=== PATIENT | male | born 1955 | race Caucasian/White ===

== ENCOUNTER 2022-11-23 03:54 | Inpatient (IN) | payer OTHER ==
[~2022-11-23] VITALS: Ht 172.7 cm; Wt 92.8 kg
[2022-11-23 04:05] VITALS: BP 159/94
[2022-11-23 04:26] LABS: BASO # 0.1 10*3/uL (0.0-0.1); BASO % 0.7 % (0.0-1.0); EOS # 0.2 10*3/uL (0.0-0.4); EOS % 1.9 % (1.0-4.0); LYMPH # 2.5 10*3/uL (1.3-4.4); LYMPH % 29.7 % (27.0-41.0); MEAN CELL VOLUME 89.3 fl (80.0-94.0); MEAN CORPUSCULAR HGB 28.5 pg (27.0-31.0); MEAN PLATELET VOLUME 8.3 fl (9.6-12.3); MONO # 0.4 10*3/uL (0.1-1.0); MONO % 5.1 % (3.0-9.0); NEUT # 5.3 10*3/uL (2.3-7.9); NEUT % 62.4 % (47.0-73.0); PLATELET COUNT AUTOMATED 294 10*3/uL (130-400); RED BLOOD COUNT 5.15 10*6/uL (4.50-5.90); RED CELL DISTRI WIDTH 15.4 % (0-14.5); WHITE BLOOD COUNT 8.5 10*3/uL (4.8-10.8)
[2022-11-23 04:40] LABS: ACT PARTIAL THROMBO TIME 25.9 SECONDS (20.0-32.1); INTERNATIONAL NORM RATIO 1.1 (2.0-3.5)
[2022-11-23 04:52] LABS: ALKALINE PHOSPHATASE 89 U/L (46-116); BUN 17 mg/dl (9-23); CHLORIDE 110 mmol/L (98-107); LIPASE 37 U/L (12-53); POTASSIUM 4.5 mmol/L (3.4-5.1); SGPT/ALT 36 U/L (10-49)
[2022-11-23 06:35] LABS: BILIRUBIN Negative (Negative); BLOOD Negative (Negative); CLARITY Clear (Clear); COLOR Yellow (Yellow); GLUCOSE Negative (Negative); KETONE Negative (Negative); LEUKO ESTERASE 1+ (Negative); NITRITE Negative (Negative); PH 5.5 (4.5-8.0)
[2022-11-23 06:41] LABS: WBC 21-30 wbc/hpf (0-5)
[2022-11-23 06:42] LABS: BACTERIA TRACE; EPITHELIAL CELLS 0-2; HYALINE CAST 0-2
[2022-11-23 12:00] VITALS: BP 111/65
[2022-11-23 12:45] VITALS: BP 104/68
[2022-11-23 16:20] VITALS: BP 106/64
[2022-11-23 20:00] VITALS: BP 112/64
[2022-11-24] VITALS: BP 102/54; BP 95/47
[2022-11-24 06:14] LABS: BASO # 0.1 10*3/uL (0.0-0.1); BASO % 1.1 % (0.0-1.0); EOS # 0.1 10*3/uL (0.0-0.4); EOS % 1.7 % (1.0-4.0); HEMATOCRIT 41.4 % (42.0-52.0); LYMPH # 2.2 10*3/uL (1.3-4.4); LYMPH % 34.2 % (27.0-41.0); MEAN CORPUSCULAR HGB 28.7 pg (27.0-31.0); MEAN CORPUSCULAR HGB CONC 31.9 g/dl (33.0-37.0); MEAN PLATELET VOLUME 8.5 fl (9.6-12.3); MONO # 0.4 10*3/uL (0.1-1.0); MONO % 6.9 % (3.0-9.0); NEUT # 3.6 10*3/uL (2.3-7.9); NEUT % 55.8 % (47.0-73.0); PLATELET COUNT AUTOMATED 244 10*3/uL (130-400); RED CELL DISTRI WIDTH 15.6 % (0-14.5); WHITE BLOOD COUNT 6.4 10*3/uL (4.8-10.8)
[2022-11-24 06:17] LABS: FREE T4 1.15 ng/dl (0.89-1.76); POTASSIUM 4.1 mmol/L (3.4-5.1); TOTAL PROTEIN 6.3 gm/dL (6.0-8.0)
[2022-11-24 07:25] LABS: VITAMIN D, 25-HYDROXY 16.3 ng/mL (30-100)
[2022-11-24 08:00] VITALS: BP 130/78
[2022-11-24 16:00] VITALS: BP 149/74
[2022-11-24 20:00] VITALS: BP 99/54
[2022-11-24 22:30] VITALS: BP 110/58
[2022-11-25] VITALS: BP 106/61
[2022-11-25 06:15] LABS: BASO # 0.1 10*3/uL (0.0-0.1); BASO % 0.9 % (0.0-1.0); EOS # 0.1 10*3/uL (0.0-0.4); EOS % 1.9 % (1.0-4.0); HEMATOCRIT 44.4 % (42.0-52.0); LYMPH # 2.2 10*3/uL (1.3-4.4); LYMPH % 34.1 % (27.0-41.0); MEAN CELL VOLUME 91.7 fl (80.0-94.0); MEAN CORPUSCULAR HGB 28.9 pg (27.0-31.0); MEAN CORPUSCULAR HGB CONC 31.5 g/dl (33.0-37.0); MEAN PLATELET VOLUME 8.7 fl (9.6-12.3); MONO # 0.4 10*3/uL (0.1-1.0); MONO % 6.8 % (3.0-9.0); NEUT # 3.5 10*3/uL (2.3-7.9); NEUT % 55.8 % (47.0-73.0); PLATELET COUNT AUTOMATED 238 10*3/uL (130-400); RED BLOOD COUNT 4.84 10*6/uL (4.50-5.90); RED CELL DISTRI WIDTH 15.7 % (0-14.5); WHITE BLOOD COUNT 6.3 10*3/uL (4.8-10.8)
[2022-11-25 06:43] LABS: POTASSIUM 3.6 mmol/L (3.4-5.1)
[2022-11-25 08:00] VITALS: BP 140/82
[2022-11-25 12:00] VITALS: BP 114/74
[2022-11-25 16:00] VITALS: BP 109/86
[2022-11-25 20:00] VITALS: BP 110/72
[2022-11-26] VITALS: BP 126/83
[2022-11-26 06:20] LABS: BASO # 0.1 10*3/uL (0.0-0.1); BASO % 1.2 % (0.0-1.0); EOS # 0.2 10*3/uL (0.0-0.4); EOS % 2.6 % (1.0-4.0); HEMATOCRIT 46.7 % (42.0-52.0); LYMPH # 2.1 10*3/uL (1.3-4.4); LYMPH % 32.7 % (27.0-41.0); MEAN CELL VOLUME 91.6 fl (80.0-94.0); MEAN CORPUSCULAR HGB 28.6 pg (27.0-31.0); MEAN CORPUSCULAR HGB CONC 31.3 g/dl (33.0-37.0); MEAN PLATELET VOLUME 8.3 fl (9.6-12.3); MONO # 0.6 10*3/uL (0.1-1.0); NEUT # 3.5 10*3/uL (2.3-7.9); NEUT % 54.2 % (47.0-73.0); PLATELET COUNT AUTOMATED 242 10*3/uL (130-400); RED CELL DISTRI WIDTH 15.7 % (0-14.5); WHITE BLOOD COUNT 6.5 10*3/uL (4.8-10.8)
[2022-11-26 07:21] LABS: POTASSIUM 4.4 mmol/L (3.4-5.1)
[2022-11-26 08:00] VITALS: BP 129/83
[2022-11-26 12:00] VITALS: BP 116/62
[2022-11-26] MEDS ORDERED: FUROSEMIDE40 MG PO (14:59)
[2022-11-26] MEDS ORDERED: ALDACTONE25 MG PO (14:59)
[2022-11-26] MEDS ORDERED: ASPIRIN ADULT L81 M2 PO (14:59)
[2022-11-26] MEDS ORDERED: ATORVASTATIN CA40 M1 PO (14:59)
[2022-11-26] MEDS ORDERED: JARDIANCE10 MG PO (14:59)
[2022-11-26] MEDS ORDERED: METOPROLOL SUCC25 M2 PO (14:59)
[2022-11-26] MEDS ORDERED: IMDUR SA30 MG PO (14:59)
[2022-11-26] MEDS ORDERED: LOSARTAN POTASS50 M1 PO (14:59)
[2022-11-26] MEDS ORDERED: VITAMIN D350 MCG PO (14:59)
[2022-11-26 16:00] VITALS: BP 140/92
== END 2022-11-26 16:13 | disposition home or self-care (01) | DRG 280 ==
LOC: ED 03:54 → 4E 06:02 → EDHOLD 06:02 → 4E 14:52
PROVIDERS: Internal Medicine; Registered Nurse; Student in an Organized Health Care Education/Training Program; ADMIT Internal Medicine; ATTEND Internal Medicine
PROC: 4A02XM4 Measurement of Cardiac Total Activity, External Approach (ICD-10-PCS; principal; 2022-11-24)
PROC: 3E073KZ Introduction of Other Diagnostic Substance into Coronary Artery, Percutaneous Approach (ICD-10-PCS; 2022-11-24)
DX: I13.0 Hypertensive heart and chronic kidney disease with heart failure and stage 1 through stage 4 chronic kidney disease, or unspecified chronic kidney disease (principal); I50.23 Acute on chronic systolic (congestive) heart failure; I21.A1 Myocardial infarction type 2; N17.9 Acute kidney failure, unspecified; R65.10 Systemic inflammatory response syndrome (SIRS) of non-infectious origin without acute organ dysfunction; E11.22 Type 2 diabetes mellitus with diabetic chronic kidney disease; F17.210 Nicotine dependence, cigarettes, uncomplicated; J44.9 Chronic obstructive pulmonary disease, unspecified; E11.65 Type 2 diabetes mellitus with hyperglycemia; N18.32 Chronic kidney disease, stage 3b; Z90.49 Acquired absence of other specified parts of digestive tract; Z79.82 Long term (current) use of aspirin; Z79.899 Other long term (current) drug therapy; Z82.49 Family history of ischemic heart disease and other diseases of the circulatory system

== ENCOUNTER → 2022-12-06 | Outpatient (CLI) | payer OTHER ==
[~2022-12-06] MED LIST: ALDACTONE25 MG PO; ASPIRIN ADULT L81 M2 PO; ATORVASTATIN CA40 M1 PO; FUROSEMIDE40 MG PO; IMDUR SA30 MG PO; JARDIANCE10 MG PO; LOSARTAN POTASS50 M1 PO; METOPROLOL SUCC25 M2 PO; VITAMIN D350 MCG PO
== END | disposition home or self-care (01) ==
LOC: RESCLI 10:29
PROVIDERS: ATTEND Family Medicine
DX: I50.9 Heart failure, unspecified (principal); F17.200 Nicotine dependence, unspecified, uncomplicated; Z98.890 Other specified postprocedural states; Z79.899 Other long term (current) drug therapy

== ENCOUNTER → 2023-01-05 | Outpatient (CLI) | payer OTHER | END | disposition home or self-care (01) | LOC: RESCLI 02:31 | PROVIDERS: ATTEND Student in an Organized Health Care Education/Training Program | DX: Z00.00 Encounter for general adult medical examination without abnormal findings (principal); I50.9 Heart failure, unspecified; Z98.890 Other specified postprocedural states; Z90.49 Acquired absence of other specified parts of digestive tract; F17.200 Nicotine dependence, unspecified, uncomplicated; Z79.899 Other long term (current) drug therapy ==